=== PATIENT | female | born 1950 | race Caucasian/White ===

== ENCOUNTER 2016-05-20 10:22 | Outpatient (CLI) | payer MEDICARE, OTHER | END 2016-05-20 10:23 | disposition home or self-care (01) | DX: R10.13 Epigastric pain (principal); R63.4 Abnormal weight loss ==

== ENCOUNTER 2016-05-28 10:09 | Outpatient (CLI) | payer MEDICARE, OTHER ==
[2016-05-28] MEDS ORDERED: IOPAMIDOL-300 50 ML VIAL PO ONE (11:32)
[2016-05-28] MEDS ORDERED: IOPAMIDOL-300 100 ML VIAL IVP ONE (11:32)
== END 2016-05-28 10:10 | disposition home or self-care (01) ==
DX: K76.0 Fatty (change of) liver, not elsewhere classified (principal); Z90.49 Acquired absence of other specified parts of digestive tract
CPT/HCPCS: 74177; Q9967

== ENCOUNTER 2016-06-08 18:54 | Outpatient (CLI) | payer MEDICARE, OTHER | END 2016-06-08 18:55 | disposition home or self-care (01) | DX: D25.1 Intramural leiomyoma of uterus (principal) ==

== ENCOUNTER 2016-09-24 08:17 | Day surgery (SDC) | payer MEDICARE, OTHER ==
[2016-09-24] MEDS ORDERED: LACTATED RINGERS 1,000 ML IV ONE ×2 (08:29→10:44)
[2016-09-24] MEDS ORDERED: fentaNYL 100 MCG/2 ML VIAL IVP ONE (09:39)
[2016-09-24] MEDS ORDERED: MIDAZOLAM 2 MG/2 ML VIAL IVP ONE (09:39)
--- NOTE | 2016-09-24 09:40 | HISTORY & PHYSICAL EXAMINATION ---
HPI - History of Present Illness HPI Comment/Other: Patient is average risk for colon cancer here for screening colonoscopy. Last scope 2006. Current Meds: CALCIUM 1200 [id number] MG-UNIT ORAL CHEW (CALCIUM CARBONATE-VIT D-MIN) Take one capsule twice daily CO Q 10 CAPS (COENZYME Q10 CAPS) TAke one capsule daily B COMPLEX-B12 ORAL TABS (B COMPLEX VITAMINS) TAke as directed MULTIVITAMINS TABS (MULTIPLE VITAMIN) one tablet po daily CALCIUM CITRATE-VITAMIN D 1500-200 MG-UNIT TABS (CALCIUM CITRATE-VITAMIN D) one daily LEVOTHYROXINE SODIUM 125 MCG TABS (LEVOTHYROXINE SODIUM) Take one tablet by mouth daily (generic okay) Allergies: Past Medical History: Reviewed history from 06/12/2014 and no changes required: SHOULDER IMPINGEMENT SYNDROME (ICD-726.2) (CEN40-B75.40) History of CERVICAL RADICULOPATHY, RIGHT (ICD-723.4) (MOF27-B62.12) VARICOSE VEIN (ICD-456.8) (DRC17-V49.8) HEMORRHOIDS (ICD-455.6) (YTC15-K42.9) ALLERGIC RHINITIS (ICD-477.9) (BBL05-X26.9) HYPOTHYROIDISM NOS (ICD-244.9) (HAZ02-G88.9) HEARING LOSS (ICD-389.9) (OWW12-H74.90) MENOPAUSE-RELATED VASOMOTOR SYMPTOMS (ICD-627.2) (HSR65-U16.8) POSTMENOPAUSAL ON HORMONE REPLACEMENT THERAPY (ICD-V07.4) (ICD10- Z79.890) STRESS INCONTINENCE (ICD-788.39) (LQO42-B06.498) Hx of DEPRESSION (ICD-311) (VIT08-I25.9) SKIN CANCER, HX OF (ICD-V10.83) (BXK16-F76.828) HERPES ZOSTER (ICD-053.9) (UZA33-B10.9) 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 Social History: Reviewed history from 05/21/2011 and no changes required: 1 - no living children. Risk Factors: Smoked Tobacco Use: Never smoker Passive smoke exposure: no Drug use: no HIV high-risk behavior: no Caffeine use: 1 drinks per day Alcohol use: yes Type: social/ occasional Drinks per day: <1 Exercise: yes Type of Exercise: walk, Zomba Seatbelt use: 100 % Sun Exposure: rarely Family History Risk Factors: Family History of VT in females < 65 years old: no Family History of VT in males < 55 years old: no Medications were reviewed with the patient during this visit. Allergies were reviewed with the patient during this visit. No known allergies. Physical Exam General: well developed, well nourished, in no acute distress Lungs: clear bilaterally to A & P Heart: regular rate and rhythm, S1, S2 without murmurs, rubs, gallops, or clicks Abdomen: bowel sounds positive; abdomen soft and non-tender without masses, organomegaly, or hernias noted Pulses: pulses normal in all 4 extremities Extremities: no clubbing, cyanosis, edema, or deformity noted with normal full range of motion of all joints Cervical Nodes: no significant adenopathy Psych: alert and cooperative; normal mood and affect; normal attention span and concentration Impression & Recommendations: Problem # 1: surveillance for colon cancer proceed with colonoscopy PMH/PSH - Past Medical History Cardiovascular: positive: None Respiratory: positive: None Endocrine/Autoimmune: positive: HyPOthyroidism GI: positive: None : positive: None HEENT: positive: None Psych: positive: None Musculoskeletal: positive: Chronic back pain Derm: positive: None MRSA Hx?: No - Past Surgical History General: positive: Cholecystectomy Ortho: positive: Rotator cuff repair HEENT: positive: Tonsil/Adenoidectomy Social & Family Hx - Social History ETOH Use: Wine Meds/Allgy - Home Medications Home Medications: Ambulatory Orders Medication Instructions Recorded Confirmed Levothyroxine [Synthroid] 25 mcg PO QDAC 09/23/16 09/24/16 Multivitamin [Multiple Vitamins] 1 each PO DAILY 09/23/16 09/24/16 - Allergies Allergies/Adverse Reactions: Allergies Allergy/AdvReac Type Severity Reaction Status Date / Time No Known Drug Allergies Allergy Verified 09/24/16 08:32 Exam - Vital Signs Vital Signs: Vital Signs x48h Temp Pulse Resp BP Pulse Ox 09/24/16 08:25 36.5 C 74 18 98/45 L 98
[2016-09-24 11:32] VITALS: BP 112/54
== END 2016-09-24 08:18 | disposition home or self-care (01) ==
LOC: SDS 08:17
PROVIDERS: ATTEND Surgery
PROC: 0DJD8ZZ Inspection of Lower Intestinal Tract, Via Natural or Artificial Opening Endoscopic (ICD-10-PCS; principal; 2016-09-24 09:30)
DX: Z12.11 Encounter for screening for malignant neoplasm of colon (principal); E03.9 Hypothyroidism, unspecified; Z82.62 Family history of osteoporosis
CPT/HCPCS: G0121; J7120

== ENCOUNTER 2017-06-25 07:44 | Outpatient (CLI) | payer MEDICARE, OTHER ==
[2017-06-25 07:46] LABS: ALBUMIN 4.5 g/dL (3.2-5.5); ALBUMIN/GLOBULIN RATIO 1.7 (1.0-2.2); BILIRUBIN,TOTAL 0.9 mg/dL (0.2-1.0); CALCIUM 9.4 mg/dL (8.5-10.3); CREATININE 0.8 mg/dL (0.4-1.0); TOTAL PROTEIN 7.1 g/dL (6.7-8.2)
[2017-06-25 08:04] LABS: BASOPHILS % (AUTO) 1.1 %; EOSINOPHILS # (AUTO) 0.1 10^3/uL (0.0-0.7); EOSINOPHILS % (AUTO) 1.6 %; LYMPHOCYTES # (AUTO) 0.9 10^3/uL (1.5-3.5); LYMPHOCYTES % (AUTO) 28.5 %; MEAN CORPUSCULAR HEMOGLOBIN 30.2 pg (27.0-31.0); MEAN CORPUSCULAR HGB CONC 33.2 g/dL (32.0-36.0); MEAN CORPUSCULAR VOLUME 90.8 fL (81.0-99.0); MEAN PLATELET VOLUME 8.8 fL (7.9-10.8); MONOCYTES # (AUTO) 0.4 10^3/uL (0.0-1.0); NEUTROPHILS # (AUTO) 1.9 10^3/uL (1.5-6.6); NEUTROPHILS % (AUTO) 55.8 %; PLT - PLATELET COUNT 170 10^3/uL (130-450); RED BLOOD COUNT 4.64 10^6/uL (4.20-5.40); RED CELL DISTRIBUTION WIDTH 13.6 % (12.0-15.0); WHITE BLOOD COUNT 3.3 x10^3/uL (4.8-10.8)
== END 2017-06-25 07:45 | disposition home or self-care (01) ==
LOC: LAB 07:44
PROVIDERS: ATTEND Internal Medicine
DX: N39.3 Stress incontinence (female) (male) (principal); E03.9 Hypothyroidism, unspecified; Z78.0 Asymptomatic menopausal state; C43.9 Malignant melanoma of skin, unspecified; M16.12 Unilateral primary osteoarthritis, left hip; Z79.899 Other long term (current) drug therapy
CPT/HCPCS: 36415; 80053; 84443; 85025

== ENCOUNTER 2017-07-15 11:50 | Outpatient (CLI) | payer MEDICARE, OTHER ==
--- NOTE | 2017-07-16 17:37 | Mammography Report ---
DIGITAL SCREENING MAMMOGRAM: 07/15/2017 CLINICAL INDICATION: A 67-year-old nulliparous patient for screening. TECHNIQUE: Routine CC and MLO projections as well as bilateral laterally exaggerated craniocaudal views were obtained of the breasts. COMPARISON: 08/2015, 07/2014, 06/2013, 06/2012, 05/2011, 05/2010, 05/2009. FINDINGS: Parenchymal tissue within both breasts is heterogeneously dense, which may lower the sensitivity of mammography; however, there are no dominant masses, suspicious microcalcifications, or secondary signs of malignancy. In comparison to the previous studies, there are no significant changes. ASSESSMENT: NO MAMMOGRAPHIC EVIDENCE OF MALIGNANCY. NO SIGNIFICANT INTERVAL CHANGES. RECOMMENDATION: Screening mammography is recommended annually. BIRADS category 1 - negative. STANDARD QUALIFYING STATEMENTS: 1. This examination was reviewed with the aid of Computed-Aided Detection (CAD). 2. A negative or benign imaging report should not delay biopsy if clinically suspicious findings are present. Consider surgical consultation if warranted. More than 5% of cancers are not identified by imaging. 3. Dense breasts may obscure an underlying neoplasm. TD: 07/16/2017 12:52
== END 2017-07-15 11:51 | disposition home or self-care (01) ==
LOC: DI 11:50
PROVIDERS: ATTEND Internal Medicine
DX: Z12.31 Encounter for screening mammogram for malignant neoplasm of breast (principal)
CPT/HCPCS: 77067

== ENCOUNTER 2018-01-25 07:22 | Outpatient (CLI) | payer MEDICARE, OTHER ==
[2018-01-25 07:52] LABS: BASOPHILS % (AUTO) 1.2 %; EOSINOPHILS % (AUTO) 1.1 %; LYMPHOCYTES # (AUTO) 0.9 10^3/uL (1.5-3.5); LYMPHOCYTES % (AUTO) 26.1 %; MEAN CORPUSCULAR HEMOGLOBIN 31.6 pg (27.0-31.0); MEAN PLATELET VOLUME 8.8 fL (7.9-10.8); MONOCYTES # (AUTO) 0.4 10^3/uL (0.0-1.0); MONOCYTES % (AUTO) 10.9 %; NEUTROPHILS # (AUTO) 2.2 10^3/uL (1.5-6.6); NEUTROPHILS % (AUTO) 60.7 %; PLT - PLATELET COUNT 188 10^3/uL (130-450); RED BLOOD COUNT 4.43 10^6/uL (4.20-5.40); RED CELL DISTRIBUTION WIDTH 13.1 % (12.0-15.0); WHITE BLOOD COUNT 3.6 x10^3/uL (4.8-10.8)
[2018-01-25 07:55] LABS: ALBUMIN 4.4 g/dL (3.2-5.5); ALBUMIN/GLOBULIN RATIO 1.5 (1.0-2.2); BILIRUBIN,TOTAL 0.7 mg/dL (0.2-1.0); CALCIUM 9.4 mg/dL (8.5-10.3); CREATININE 0.9 mg/dL (0.4-1.0); TOTAL PROTEIN 7.3 g/dL (6.7-8.2)
[2018-01-26 14:05] LABS: HEPATITIS C ANTIBODY NON-REACTIVE (NON-REACTIVE)
== END 2018-01-25 07:23 | disposition home or self-care (01) ==
LOC: LAB 07:22
PROVIDERS: ATTEND Internal Medicine
DX: E03.9 Hypothyroidism, unspecified (principal); M16.12 Unilateral primary osteoarthritis, left hip
CPT/HCPCS: 36415; 80053; 84443; 85025; 86803

== ENCOUNTER 2018-04-26 20:31 | Emergency (ER) | payer MEDICARE, OTHER ==
[2018-04-26 20:44] VITALS: BP 137/71
[2018-04-26] MEDS ORDERED: TETANUS/DIPHTHERIA/PERTUSSIS 0.5 ML SYRINGE IM ONE (21:08)
[2018-04-26] MEDS ORDERED: AMOX/CLAV 875 MG/125 MG TABLET PO STA (21:08)
--- NOTE | 2018-04-26 21:11 | ED Physician Documentation ---
PD HPI UPPER EXT INJURY - Stated complaint Stated Complaint: CAT BITE ON RT HAND - Chief complaint Chief Complaint: Wound - History obtained from History obtained from: Patient - History of Present Illness Location: Right (About 6 hours ago her cat who is otherwise healthy and fully immunized bit her on the right hand. Pain is mild and there is some swelling. Her tetanus is not up-to-date.) Review of Systems Constitutional: reports: Reviewed and negative Cardiac: reports: Reviewed and negative Respiratory: reports: Reviewed and negative PD PAST MEDICAL HISTORY - Past Medical History Cardiovascular: None Respiratory: None Endocrine/Autoimmune: HyPOthyroidism GI: None : None HEENT: None Psych: None Musculoskeletal: Chronic back pain Derm: None - Past Surgical History General: Cholecystectomy Ortho: Rotator cuff repair HEENT: Tonsil/Adenoidectomy - Present Medications Home Medications: Ambulatory Orders Medication Instructions Recorded Confirmed Levothyroxine [Synthroid] 25 mcg PO QDAC 09/23/16 09/24/16 Multivitamin [Multiple Vitamins] 1 each PO DAILY 09/23/16 09/24/16 Amox/Clav 875/125 [Augmentin] 1 each PO Q12H #14 tablet 04/26/18 - Allergies Allergies/Adverse Reactions: Allergies Allergy/AdvReac Type Severity Reaction Status Date / Time No Known Drug Allergies Allergy Verified 04/26/18 20:44 PD ED PE NORMAL - Vitals Vital signs reviewed: Yes - General General: Alert and oriented X 3, No acute distress - Extremities Extremities: Other (On the dorsum of the right hand there is a single puncture wound without evidence of infection, there is some local swelling but it looks like it is because it punctured a vein locally there.) - Neuro Neuro: Alert and oriented X 3, Normal speech Results - Vitals Vitals: Vital Signs - 24 hr 04/26/18 20:41 Temperature 36.9 C Heart Rate 75 Respiratory 18 Rate Blood Pressure 137/71 H O2 Saturation 100 Oxygen O2 Source Room air Departure - Departure Disposition: 01 Home, Self Care Clinical Impression: Cat bite of right hand Qualifiers: Encounter type: initial encounter Qualified Code(s): S61.451A - Open bite of right hand, initial encounter; W55.01XA - Bitten by cat, initial encounter Condition: Good Record reviewed to determine appropriate education?: Yes Instructions: ED Bite Animal General Prescriptions: Amox/Clav 875/125 [Augmentin] 1 each PO Q12H #14 tablet Comments: As discussed return if you develop increasing swelling, redness, pain or fevers. Keep it elevated as much as possible. Your blood pressure was elevated today on check into the emergency department. This does not mean that you have hypertension, it is a common phenomenon to come to the emergency department and have elevated blood pressure. I recommend that you see your primary care physician within the week to have it rechecked when you are feeling better.
== END 2018-04-26 21:24 | disposition home or self-care (01) ==
LOC: ED 20:31
DX: S61.451A Open bite of right hand, initial encounter (principal); R03.0 Elevated blood-pressure reading, without diagnosis of hypertension; E03.9 Hypothyroidism, unspecified; Z23 Encounter for immunization
CPT/HCPCS: 90471; 90715; 99283; A9270

== ENCOUNTER 2018-10-03 09:31 | Outpatient (CLI) | payer MEDICARE, OTHER ==
[2018-10-03 10:21] LABS: BASOPHILS % (AUTO) 0.8 %; EOSINOPHILS % (AUTO) 1.1 %; HGB - HEMOGLOBIN 14.8 g/dL (12.0-16.0); LYMPHOCYTES % (AUTO) 27.1 %; MEAN CORPUSCULAR HEMOGLOBIN 31.2 pg (27.0-31.0); MEAN CORPUSCULAR VOLUME 94.5 fL (81.0-99.0); MEAN PLATELET VOLUME 10.5 fL (7.9-10.8); MONOCYTES # (AUTO) 0.4 10^3/uL (0.0-1.0); MONOCYTES % (AUTO) 10.8 %; NEUTROPHILS # (AUTO) 2.2 10^3/uL (1.5-6.6); NEUTROPHILS % (AUTO) 60.2 %; PLT - PLATELET COUNT 169 10^3/uL (130-450); RED BLOOD COUNT 4.74 10^6/uL (4.20-5.40); RED CELL DISTRIBUTION WIDTH 12.2 % (12.0-15.0); WHITE BLOOD COUNT 3.6 x10^3/uL (4.8-10.8)
[2018-10-03 10:37] LABS: ALBUMIN 4.6 g/dL (3.2-5.5); ALBUMIN/GLOBULIN RATIO 1.4 (1.0-2.2); BILIRUBIN,TOTAL 0.9 mg/dL (0.2-1.0); CREATININE 0.8 mg/dL (0.4-1.0); TOTAL PROTEIN 7.9 g/dL (6.7-8.2)
[2018-10-03 11:02] LABS: THYROID STIMULATING HORMONE 1.41 uIU/mL (0.34-5.60)
[2018-10-03 11:04] LABS: FREE T4 (FREE THYROXINE) 0.99 ng/dL (0.58-1.64)
== END 2018-10-03 09:32 | disposition home or self-care (01) ==
LOC: LAB 09:31
PROVIDERS: ATTEND Family Medicine
DX: R53.83 Other fatigue (principal); N39.3 Stress incontinence (female) (male); M16.12 Unilateral primary osteoarthritis, left hip; E03.9 Hypothyroidism, unspecified
CPT/HCPCS: 36415; 80053; 82977; 84439; 84443; 84481; 85025; 85610; 85730

== ENCOUNTER 2018-10-04 10:00 | Outpatient (CLI) | payer MEDICARE, OTHER ==
[2018-10-04 10:15] LABS: INR 1.1 (0.8-1.2); PT - PROTHROMBIN TIME 12.2 secs (9.9-12.6)
[2018-10-04 10:22] LABS: PARTIAL THROMBOPLASTIN TIME 31.2 secs (24.9-33.3)
== END 2018-10-04 10:01 | disposition home or self-care (01) ==
LOC: LAB 10:00
PROVIDERS: ATTEND Family Medicine
DX: R53.83 Other fatigue (principal); N39.3 Stress incontinence (female) (male); E03.9 Hypothyroidism, unspecified; M16.12 Unilateral primary osteoarthritis, left hip; K75.81 Nonalcoholic steatohepatitis (NASH); R19.37 Generalized abdominal rigidity
CPT/HCPCS: 36415; 85610; 85730

== ENCOUNTER 2019-02-23 12:51 | Outpatient (CLI) | payer MEDICARE, OTHER ==
--- NOTE | 2019-02-24 11:48 | DEXA Report ---
Reason: ASYMPTOMATIC MENOPAUSAL STATE Procedure Date: 02/23/2019 Accession Number: [id number] / [id number] Procedure: DEX - Dexa Spine and/or Hip CPT Code: Final Report FULL RESULT: EXAM: Dexa Spine and/or Hip DATE: 02/23/2019 2:22 PM CLINICAL HISTORY: ASYMPTOMATIC MENOPAUSAL STATE TECHNIQUE: Dual energy x-ray absorptiometry (DXA) was performed on a [employer] System. Regions measured are the AP Spine, femoral neck, and if needed forearm. COMPARISON: 09/17/2015. In accordance with the International Society for Clinical Densitometry (ISCD) guidelines, data from previous exams may be reanalyzed using current recommendations and techniques. This is done to allow a more accurate basis for comparison with the current study. FINDINGS: The data for the lumbar spine is as follows: BMD (g/cm/cm) T-SCORE Z-SCORE REGION L1 0.848 -2.4 -0.6 L2 1.167 -0.3 1.5 L3 1.251 0.4 2.2 L4 1.049 -1.3 0.5 TOTAL 1.083 -0.8 1.0 NOTE: All evaluable vertebrae are used for classification The data for the hip is as follows: BMD (g/cm/cm) T-SCORE Z-SCORE REGION Neck 0.905 -1.0 0.8 TOTAL 0.931 -0.6 0.9 NOTE: The femoral neck or total proximal femur, whichever is lowest, is used for classification. DXA RESULTS SUMMARY: Spine SCAN DATE AGE BMD CHANGE VS CHANGE VS PREVIOUS PREVIOUS % 02[age]23/2019 [age] 1.083 -0.073* -6.3* 09/17/2015 65.6 1[age]156 * Denotes significant change at the 95% confidence level. Denotes dissimilar scan types or analysis methods. DXA RESULTS SUMMARY: Hip SCAN DATE AGE BMD CHANGE VS CHANGE VS PREVIOUS PREVIOUS % 02[age]23/2019 69.1 0.931 -0.075* -7.5* 09/17/2015 65.6 1.006 * Denotes significant change at the 95% confidence level. Denotes dissimilar scan types or analysis methods. IMPRESSION: THE WHO CLASSIFICATION BASED ON THE INTERNATIONAL REFERENCE STANDARD IS NORMAL. THE FRACTURE RISK IS NOT INCREASED. While overall bone density remains within normal range, the interval decrease in bone density is statistically significant. RECOMMENDATION: Patients with diagnosis of osteoporosis or osteopenia should have regular bone mineral density assessment. For those eligible for Medicare, routine testing is allowed once every 2 years. Testing frequency can be increased for patients who have rapidly progressing disease or for those who are receiving medical therapy to restore bone mass. COMMENT: World Health Organization (WHO) definitions for osteoporosis and osteopenia: NORMAL BMD: T-score at -1.0 or higher, fracture risk is low OSTEOPENIA BMD: T-score between -1.0 and -2.5, fracture risk is increased. OSTEOPOROSIS BMD: T-score at -2.5 or lower, fracture risk is high. National Osteoporosis Foundation recommends: 1. Obtain adequate dietary calcium (at least 1200 mg per day) and vitamin D (400-800 international units per day). 2. Participate, as appropriate, in regular weightbearing and muscle-strengthening exercise. 3. Avoid tobacco use and reduce alcohol and caffeine intake. 4. For more detailed information see the website at www.NOF.org.
== END 2019-02-23 12:52 | disposition home or self-care (01) ==
LOC: DI 12:51
PROVIDERS: ATTEND Family Medicine
DX: Z78.0 Asymptomatic menopausal state (principal)
CPT/HCPCS: 77080

== ENCOUNTER 2019-04-28 13:13 | Outpatient (CLI) | payer MEDICARE, OTHER ==
[2019-04-28 13:54] LABS: CHOL/HDL RATIO 1.9 (<4.4); CHOLESTEROL 189 mg/dL; HDL CHOLESTEROL 100 mg/dL
== END 2019-04-28 13:14 | disposition home or self-care (01) ==
LOC: LAB 13:13
PROVIDERS: ATTEND Internal Medicine Cardiovascular Disease
DX: Z00.00 Encounter for general adult medical examination without abnormal findings (principal); R07.89 Other chest pain
CPT/HCPCS: 36415; 80061; 83721

== ENCOUNTER 2020-04-02 09:28 | Outpatient (CLI) | payer MEDICARE, OTHER ==
[2020-04-02 12:31] LABS: BASOPHILS % (AUTO) 0.3 %; EOSINOPHILS % (AUTO) 0.6 %; HGB - HEMOGLOBIN 14.4 g/dL (12.0-16.0); LYMPHOCYTES # (AUTO) 0.9 10^3/uL (1.5-3.5); LYMPHOCYTES % (AUTO) 25.2 %; MEAN CORPUSCULAR HGB CONC 33.4 g/dL (32.0-36.0); MEAN CORPUSCULAR VOLUME 92.7 fL (81.0-99.0); MEAN PLATELET VOLUME 11.3 fL (7.9-10.8); MONOCYTES # (AUTO) 0.3 10^3/uL (0.0-1.0); MONOCYTES % (AUTO) 9.8 %; NEUTROPHILS # (AUTO) 2.2 10^3/uL (1.5-6.6); NEUTROPHILS % (AUTO) 64.1 %; PLT - PLATELET COUNT 197 10^3/uL (130-450); RED BLOOD COUNT 4.65 10^6/uL (4.20-5.40); RED CELL DISTRIBUTION WIDTH 11.9 % (12.0-15.0); WHITE BLOOD COUNT 3.4 x10^3/uL (4.8-10.8)
[2020-04-02 13:26] LABS: ALBUMIN 4.5 g/dL (3.2-5.5); ALBUMIN/GLOBULIN RATIO 1.8 (1.0-2.2); ALKALINE PHOSPHATASE 71 IU/L (42-121); ALT ALANINE AMINOTRANSFERASE 22 IU/L (10-60); AST ASPARTATE AMINOTRANSFERASE 30 IU/L (10-42); BILIRUBIN,TOTAL 0.7 mg/dL (0.2-1.0); BUN - BLOOD UREA NITROGEN 21 mg/dL (6-20); CALCIUM 10.1 mg/dL (8.5-10.3); CARBON DIOXIDE - CO2 27 mmol/L (21-32); CHLORIDE 103 mmol/L (101-111); CHOLESTEROL 204 mg/dL; CREATININE 0.7 mg/dL (0.4-1.0); GLUCOSE 82 mg/dL (70-100); HDL CHOLESTEROL 101 mg/dL
[2020-04-02 14:05] LABS: FREE T4 (FREE THYROXINE) 1.75 ng/dL (0.58-1.64)
== END 2020-04-02 23:59 | disposition home or self-care (01) ==
LOC: LAB.WCP 09:28
PROVIDERS: ATTEND Nurse Practitioner
DX: D72.810 Lymphocytopenia (principal); D70.9 Neutropenia, unspecified; E03.9 Hypothyroidism, unspecified; K76.0 Fatty (change of) liver, not elsewhere classified; R53.83 Other fatigue; Z13.820 Encounter for screening for osteoporosis
CPT/HCPCS: 36415; 80053; 80061; 82306; 82607; 83721; 84439; 84443; 85025

== ENCOUNTER 2020-05-28 13:03 | Outpatient (CLI) | payer MEDICARE, OTHER ==
--- NOTE | 2020-05-29 09:37 | Mammography Report ---
BILATERAL DIGITAL SCREENING MAMMOGRAM 3D/2D: 05/28/2020 CLINICAL: Routine screening. Comparison is made to exams dated: 07/15/2017 mammogram, 08/27/2015 mammogram, 08/14/2014 mammogram, and 07/19/2013 mammogram - [facility]. The tissue of both breasts is heterogeneously d ense. This may lower the sensitivity of mammography. No significant masses, calcifications, or other findings are seen in either breast. There has been no significant interval change. IMPRESSION: NEGATIVE There is no mammographic evidence of malignancy. A 1 year screening mammogram is recommended. This exam was interpreted at Station ID: [id number]. NOTE: For mammograms, a report in lay terms will be sent to the patient. Approximately 15% of breast malignancies will not be visualized mammographically. In the management of a palpable breast mass, a negative mammogram must not discourage biopsy of a clinically suspicious lesion. Electronically Signed By: Jeffery Houston M.D. ddp/penrad:05/28/2020 16:46:41 ACR BI-RADS Category 1: Negative 3341F PARENCHYMAL PATTERN: (D) - The breast(s) demonstrate(s) heterogeneously dense fibroglandular tashi jones. BI-RADS CATEGORY: (1) - 1 RECOMMENDATION: (ANNUAL) - Recommend routine annual screening mammography. [id number] 1 year screening LATERALITY: (B)
== END 2020-05-28 13:04 | disposition home or self-care (01) ==
LOC: DI 13:03
DX: Z12.31 Encounter for screening mammogram for malignant neoplasm of breast (principal)

== ENCOUNTER 2020-06-18 07:00 | Outpatient (CLI) | payer MEDICARE, OTHER ==
--- NOTE | 2020-06-18 19:04 | XRAY Report ---
PROCEDURE: Ribs w/PA Chest LT INDICATIONS: L RIB PX TECHNIQUE: 3 views of the left ribs were acquired, along with a single view chest. COMPARISON: Left ribs 04/30/2017 FINDINGS: Surgical changes and devices: None. Bones and chest wall: No fractures or dislocations. No suspicious bony lesions. Overlying soft tis sues appear unremarkable. Lungs and pleura: No pleural effusions or pneumothorax. Lungs appear clear. Lungs are hyperexpande d. Mediastinum: Mediastinal contours appear normal. Heart size is normal. IMPRESSION: No visualized acute fracture or dislocation. However, occult injury cannot be excluded. Recommend nat rt interval imaging follow-up in 7-10 days as clinically indicated for additional evaluation. Reviewed by: Florecita Hancock MD on 06/18/2020 6:02 PM RAE Approved by: Florecita Hancock MD on 06/18/2020 6:02 PM RAE Station ID: [id number]
== END 2020-06-18 23:59 | disposition home or self-care (01) ==
LOC: DI.N 07:00
PROVIDERS: ATTEND Family Medicine
DX: R07.81 Pleurodynia (principal); E03.9 Hypothyroidism, unspecified; R53.83 Other fatigue
CPT/HCPCS: 36415; 84439; 84443

== ENCOUNTER 2020-06-18 08:00 | Outpatient (CLI) | payer MEDICARE, OTHER ==
[2020-06-18 18:31] LABS: THYROID STIMULATING HORMONE 0.59 uIU/mL (0.34-5.60)
[2020-06-18 18:33] LABS: FREE T4 (FREE THYROXINE) 1.05 ng/dL (0.58-1.64)
== END 2020-06-18 23:59 | disposition home or self-care (01) ==
LOC: LAB.N 08:00
PROVIDERS: ATTEND Family Medicine
DX: E03.9 Hypothyroidism, unspecified (principal); R53.83 Other fatigue
CPT/HCPCS: 36415; 84439; 84443

== ENCOUNTER 2021-04-23 08:34 | Outpatient (CLI) | payer MEDICARE, OTHER ==
[2021-04-23 08:52] LABS: BASOPHILS # (AUTO) 0.1 10^3/uL (0.0-0.1); BASOPHILS % (AUTO) 0.9 %; EOSINOPHILS # (AUTO) 0.1 10^3/uL (0.0-0.7); EOSINOPHILS % (AUTO) 1.1 %; HCT - HEMATOCRIT 43.9 % (37.0-47.0); HGB - HEMOGLOBIN 14.5 g/dL (12.0-16.0); LYMPHOCYTES % (AUTO) 17.9 %; MEAN CORPUSCULAR HEMOGLOBIN 30.5 pg (27.0-31.0); MEAN CORPUSCULAR VOLUME 92.4 fL (81.0-99.0); MEAN PLATELET VOLUME 9.7 fL (7.9-10.8); MONOCYTES # (AUTO) 0.5 10^3/uL (0.0-1.0); MONOCYTES % (AUTO) 8.9 %; NEUTROPHILS % (AUTO) 70.8 %; PLT - PLATELET COUNT 228 10^3/uL (130-450); RED BLOOD COUNT 4.75 10^6/uL (4.20-5.40); WHITE BLOOD COUNT 5.6 x10^3/uL (4.8-10.8)
[2021-04-23 09:10] LABS: ALBUMIN 4.4 g/dL (3.2-5.5); ALBUMIN/GLOBULIN RATIO 1.5 (1.0-2.2); ALKALINE PHOSPHATASE 72 IU/L (42-121); ALT ALANINE AMINOTRANSFERASE 23 IU/L (10-60); AST ASPARTATE AMINOTRANSFERASE 26 IU/L (10-42); BILIRUBIN,TOTAL 0.8 mg/dL (0.2-1.0); BUN - BLOOD UREA NITROGEN 16 mg/dL (6-20); CALCIUM 9.7 mg/dL (8.5-10.3); CARBON DIOXIDE - CO2 28 mmol/L (21-32); CHLORIDE 101 mmol/L (101-111); CHOL/HDL RATIO 1.9 (<4.4); CHOLESTEROL 198 mg/dL; CREATININE 0.9 mg/dL (0.4-1.0); GFR - MDRD 62 (>89); GLUCOSE 94 mg/dL (70-100); HDL CHOLESTEROL 103 mg/dL; POTASSIUM 3.9 mmol/L (3.5-5.0); SODIUM 138 mmol/L (135-145); TOTAL PROTEIN 7.4 g/dL (6.7-8.2); TRIGLYCERIDES 32 mg/dL
[2021-04-23 09:23] LABS: THYROID STIMULATING HORMONE 3.13 uIU/mL (0.34-5.60)
[2021-04-23 09:24] LABS: FREE T3 2.32 pg/mL (2.5-3.9)
[2021-04-23 09:25] LABS: FREE T4 (FREE THYROXINE) 0.9 ng/dL (0.58-1.64)
== END 2021-04-23 08:35 | disposition home or self-care (01) ==
LOC: LAB 08:34
PROVIDERS: ATTEND Family Medicine
DX: D72.810 Lymphocytopenia (principal); C43.9 Malignant melanoma of skin, unspecified; E03.9 Hypothyroidism, unspecified
CPT/HCPCS: 36415; 80053; 80061; 83721; 84439; 84443; 84481; 85025

== ENCOUNTER 2021-04-24 14:06 | Outpatient (CLI) | payer MEDICARE, OTHER ==
--- NOTE | 2021-04-24 15:58 | DEXA Report ---
PROCEDURE: Dexa Spine and/or Hip INDICATIONS: POSTMENOPAUSAL TECHNIQUE: Dual energy x-ray absorptiometry (DXA) was performed on a [employer] System. Regions measur ed are the AP Spine, femoral neck, and if needed forearm. COMPARISON: DEXA 02/23/2019. FINDINGS: Lumbar Spine: Bone Mineral Density 1.073 g/cm/cm,T score -0.9. Left Hip: Bone Mineral Density 0.877 g/cm/cm,T score -1.0. Left Femoral Neck: Bone Mineral Density 0.864 g/cm/cm, T score -1.3. Compared to the prior examination dated 02/23/2019, there is significant decrease in bone mineral den sity in left hip. Impression: 1. Based on WHO criteria, the patient is osteopenic. Since last exam on 02/23/2019, the patient's bon e mineral density has decreased in left hip. Patients with diagnosis of osteoporosis or osteopenia should have regular bone mineral density assess ment. For those eligible for Medicare, routine testing is allowed once every 2 years. Testing frequ ency can be increased for patients who have rapidly progressing disease or for those who are receivin g medical therapy to restore bone mass. Reviewed by: Sonny Wells MD on 04/24/2021 3:56 PM PST Approved by: Sonny Wells MD on 04/24/2021 3:56 PM PST Station ID: [id number]
== END 2021-04-24 14:07 | disposition home or self-care (01) ==
LOC: DI 14:06
PROVIDERS: ATTEND Family Medicine
DX: Z78.0 Asymptomatic menopausal state (principal); M85.89 Other specified disorders of bone density and structure, multiple sites

== ENCOUNTER 2021-08-12 08:00 | Outpatient (CLI) | payer MEDICARE, OTHER ==
[2021-08-12 20:44] LABS: HCT - HEMATOCRIT 40.9 % (37.0-47.0); HGB - HEMOGLOBIN 13.6 g/dL (12.0-16.0); MEAN CORPUSCULAR HEMOGLOBIN 31.1 pg (27.0-31.0); MEAN CORPUSCULAR HGB CONC 33.3 g/dL (32.0-36.0); MEAN CORPUSCULAR VOLUME 93.6 fL (81.0-99.0); MEAN PLATELET VOLUME 11.2 fL (7.9-10.8); RED BLOOD COUNT 4.37 10^6/uL (4.20-5.40); WHITE BLOOD COUNT 5.1 x10^3/uL (4.8-10.8)
[2021-08-12 20:52] LABS: ALBUMIN 4.1 g/dL (3.2-5.5); ALBUMIN/GLOBULIN RATIO 1.6 (1.0-2.2); BILIRUBIN,TOTAL 0.5 mg/dL (0.2-1.0); CALCIUM 9.8 mg/dL (8.5-10.3); CREATININE 0.7 mg/dL (0.4-1.0); POTASSIUM 3.7 mmol/L (3.5-5.0); TOTAL PROTEIN 6.7 g/dL (6.7-8.2)
== END 2021-08-12 23:59 | disposition home or self-care (01) ==
LOC: LAB.N 08:00
PROVIDERS: ATTEND Physician Assistant
DX: K92.2 Gastrointestinal hemorrhage, unspecified (principal)
CPT/HCPCS: 36415; 80053; 85027

== ENCOUNTER 2022-03-11 14:41 | Outpatient (CLI) | payer MEDICARE, OTHER ==
--- NOTE | 2022-03-13 11:07 | Mammography Report ---
BILATERAL DIGITAL SCREENING MAMMOGRAM 3D/2D: 03/12/2022 CLINICAL: Routine screening. Comparison is made to exams dated: 05/28/2020 mammogram, 07/15/2017 mammogram, and 08/27/2015 mammogram - [facility]. Both breasts are heterogeneously dense, which may obscure small masses (category c / 51-75% glandular tissue). No significant masses, calcifications, or other findings are seen in either breast. There has been no significant interval change. IMPRESSION: NEGATIVE There is no mammographic evidence of malignancy. A 1 year screening mammogram is recommended. Based on the Tyrer Cuzick model (a risk assessment model) the patients lifetime risk is 8.1% and her 10 year risk is 6.7%. According to the ACR, ACS, and NCCN guidelines, an annual breast MRI exam lexie g with mammogram is recommended if the patients lifetime risk is 20% or greater. This exam was interpreted at Station ID: [id number]. NOTE: For mammograms, a report in lay terms will be sent to the patient. Approximately 15% of breast malignancies will not be visualized mammographically. In the management of a palpable breast mass, a negative mammogram must not discourage biopsy of a clinically suspicious lesion. Electronically Signed By: Mariana skinner/connie:03/12/2022 12:00:10 ACR BI-RADS Category 1: Negative 3341F PARENCHYMAL PATTERN: (D) - The breast(s) demonstrate(s) heterogeneously dense fibroglandular parmuna ma. BI-RADS CATEGORY: (1) - 1 RECOMMENDATION: (ANNUAL) - Recommend routine annual screening mammography. [id number] 1 year screening LATERALITY: (B)
== END 2022-03-11 14:42 | disposition home or self-care (01) ==
LOC: DI 14:41
DX: Z12.31 Encounter for screening mammogram for malignant neoplasm of breast (principal)

== ENCOUNTER 2022-05-21 07:27 | Outpatient (CLI) | payer MEDICARE, OTHER ==
[2022-05-21 08:04] LABS: EOSINOPHILS % (AUTO) 1.4 %; HCT - HEMATOCRIT 41.7 % (37.0-47.0); LYMPHOCYTES # (AUTO) 0.9 10^3/uL (1.5-3.5); LYMPHOCYTES % (AUTO) 32.3 %; MEAN CORPUSCULAR HEMOGLOBIN 31.4 pg (27.0-31.0); MEAN CORPUSCULAR HGB CONC 33.6 g/dL (32.0-36.0); MEAN CORPUSCULAR VOLUME 93.5 fL (81.0-99.0); MEAN PLATELET VOLUME 9.8 fL (7.9-10.8); MONOCYTES # (AUTO) 0.3 10^3/uL (0.0-1.0); MONOCYTES % (AUTO) 10.7 %; NEUTROPHILS # (AUTO) 1.6 10^3/uL (1.5-6.6); NEUTROPHILS % (AUTO) 54.6 %; PLT - PLATELET COUNT 164 10^3/uL (130-450); RED BLOOD COUNT 4.46 10^6/uL (4.20-5.40); RED CELL DISTRIBUTION WIDTH 12.2 % (12.0-15.0); WHITE BLOOD COUNT 2.9 x10^3/uL (4.8-10.8)
[2022-05-21 08:08] LABS: SLIDE REVIEW? Indicated
[2022-05-21 08:22] LABS: ALBUMIN 4.3 g/dL (3.2-5.5); ALBUMIN/GLOBULIN RATIO 1.7 (1.0-2.2); ALKALINE PHOSPHATASE 58 IU/L (42-121); ALT ALANINE AMINOTRANSFERASE 22 IU/L (10-60); AST ASPARTATE AMINOTRANSFERASE 27 IU/L (10-42); BILIRUBIN,TOTAL 0.9 mg/dL (0.2-1.0); BUN - BLOOD UREA NITROGEN 17 mg/dL (6-20); CALCIUM 9.4 mg/dL (8.5-10.3); CARBON DIOXIDE - CO2 29 mmol/L (21-32); CHLORIDE 107 mmol/L (101-111); CHOL/HDL RATIO 1.8 (<4.4); CHOLESTEROL 207 mg/dL; CREATININE 0.7 mg/dL (0.4-1.0); GFR - MDRD 82 (>89); GLUCOSE 96 mg/dL (70-100); HDL CHOLESTEROL 114 mg/dL; POTASSIUM 3.9 mmol/L (3.5-5.0); SODIUM 141 mmol/L (135-145); TOTAL PROTEIN 6.8 g/dL (6.7-8.2); TRIGLYCERIDES 19 mg/dL
[2022-05-21 08:30] LABS: PLATELET ESTIMATE, MANUAL NORMAL (130-450,000) (NORMAL); PLATELET MORPHOLOGY NORMAL APPEARANCE (NORMAL); RBC MORPHOLOGY (MULTIPLE) NORMAL APPEARANCE (NORMAL)
[2022-05-21 08:34] LABS: THYROID STIMULATING HORMONE 2.36 uIU/mL (0.34-5.60)
== END 2022-05-21 07:28 | disposition home or self-care (01) ==
LOC: LAB 07:27
PROVIDERS: ATTEND Family Medicine
DX: E03.9 Hypothyroidism, unspecified (principal); Z13.220 Encounter for screening for lipoid disorders
CPT/HCPCS: 36415; 80053; 80061; 83721; 84443; 85025

== ENCOUNTER 2022-12-01 14:26 | Outpatient (CLI) | payer MEDICARE, OTHER ==
--- NOTE | 2022-12-01 16:18 | XRAY Report ---
PROCEDURE: Chest 2 View X-Ray INDICATIONS: BRONCHITIS,ACUTE TECHNIQUE: 2 views of the chest were acquired. COMPARISON: Chest x-ray 04/30/2017 FINDINGS: Surgical changes and devices: Right shoulder tendon anchors. Lungs and pleura: No pleural effusions or pneumothorax. Lungs are clear. Lungs are hyperexpanded suggestive COPD. Mediastinum: Mediastinal contours appear normal. Heart size is normal. Bones and chest wall: No suspicious bony lesions. Overlying soft tissues appear unremarkable. IMPRESSION: No acute cardiopulmonary process. Reviewed by: Florecita Hancock MD on 12/01/2022 4:16 PM PDT Approved by: Florecita Hancock MD on 12/01/2022 4:16 PM PDT Station ID: [id number]
== END 2022-12-01 14:27 | disposition home or self-care (01) ==
LOC: DI 14:26
PROVIDERS: ATTEND Family Medicine
DX: J20.9 Acute bronchitis, unspecified (principal)

== ENCOUNTER 2023-11-17 15:16 | Outpatient (CLI) | payer MEDICARE, OTHER ==
[2023-11-17 15:26] LABS: BASOPHILS % (AUTO) 0.5 %; EOSINOPHILS % (AUTO) 0.7 %; HCT - HEMATOCRIT 43.2 % (37.0-47.0); HGB - HEMOGLOBIN 14.4 g/dL (12.0-16.0); LYMPHOCYTES # (AUTO) 1.6 10^3/uL (1.5-3.5); LYMPHOCYTES % (AUTO) 26.4 %; MEAN CORPUSCULAR HEMOGLOBIN 31.4 pg (27.0-31.0); MEAN CORPUSCULAR HGB CONC 33.3 g/dL (32.0-36.0); MEAN CORPUSCULAR VOLUME 94.1 fL (81.0-99.0); MEAN PLATELET VOLUME 9.9 fL (7.9-10.8); MONOCYTES # (AUTO) 0.5 10^3/uL (0.0-1.0); MONOCYTES % (AUTO) 8.8 %; NEUTROPHILS # (AUTO) 3.8 10^3/uL (1.5-6.6); NEUTROPHILS % (AUTO) 63.4 %; PLT - PLATELET COUNT 196 10^3/uL (130-450); RED BLOOD COUNT 4.59 10^6/uL (4.20-5.40); RED CELL DISTRIBUTION WIDTH 12.2 % (12.0-15.0); WHITE BLOOD COUNT 5.9 x10^3/uL (4.8-10.8)
[2023-11-17 15:56] LABS: THYROID STIMULATING HORMONE 6.98 uIU/mL (0.34-5.60)
[2023-11-17 15:58] LABS: ALBUMIN 4.5 g/dL (3.2-5.5); ALKALINE PHOSPHATASE 70 IU/L (42-121); ALT ALANINE AMINOTRANSFERASE 21 IU/L (10-60); AST ASPARTATE AMINOTRANSFERASE 25 IU/L (10-42); BILIRUBIN,TOTAL 0.5 mg/dL (0.2-1.0); BUN - BLOOD UREA NITROGEN 19 mg/dL (6-20); CALCIUM 10.2 mg/dL (8.5-10.3); CARBON DIOXIDE - CO2 32 mmol/L (21-32); CHLORIDE 103 mmol/L (101-111); CHOLESTEROL 210 mg/dL; CREATININE 0.7 mg/dL (0.6-1.3); GFR - MDRD 82 (>89); GLUCOSE 90 mg/dL (74-104); HDL CHOLESTEROL 107 mg/dL; LDL CHOLESTEROL,CALCULATED 91 mg/dL; LDL/HDL RATIO 0.9 (<4.4); POTASSIUM 4.1 mmol/L (3.5-4.5); SODIUM 138 mmol/L (135-145); TOTAL PROTEIN 6.7 g/dL (6.4-8.9); TRIGLYCERIDES 58 mg/dL; VLDL CHOLESTEROL 12 mg/dL
== END 2023-11-17 15:17 | disposition home or self-care (01) ==
LOC: LAB 15:16
PROVIDERS: ATTEND Family Medicine
DX: R19.7 Diarrhea, unspecified (principal); E03.9 Hypothyroidism, unspecified; R15.9 Full incontinence of feces
CPT/HCPCS: 36415; 80053; 80061; 83721; 84439; 84443; 84481; 85025